=== PATIENT | female | born 1970 | race Two or more races ===

== ENCOUNTER 2018-12-15 16:16 | Emergency (ER) | payer MEDICAID ==
[~2018-12-15] VITALS: Ht 154.9 cm; Wt 56.7 kg
[~2018-12-15 16:16] MED LIST: ALEN1TAB32 PO; AMLO10TA13 PO; ARTISOL13 EACHEYE; FAM20T PO; HYDR-4188 PO; LISI40TA PO; MECL25CH38 PO; MYCO500T PO; ONDA-144 PO; PRE5T PO; PROP20TA73 PO
[2018-12-15 23:18] VITALS: BP 126/76
== END 2018-12-16 00:59 | disposition left against medical advice (07) ==
LOC: ER 16:16
DX: R51 Headache (principal); Z53.21 Procedure and treatment not carried out due to patient leaving prior to being seen by health care provider

== ENCOUNTER 2019-12-05 05:11 | Emergency (ER) | payer MEDICAID ==
[~2019-12-05] VITALS: Ht 167.6 cm; Wt 68.0 kg
[~2019-12-05 05:11] MED LIST changes: -FAM20T PO; +FAMO20TA10 PO; -LISI40TA PO; +LISI40TA11 PO
[2019-12-05 06:03] LABS: Basophils # (auto) 0 10 ^3/uL (0-0.2); Basophils % (auto) 0.4 % (0.0-2.0); Eosinophils # (auto) 0 10 ^3/uL (0-0.8); Eosinophils % (auto) 0.4 % (0.0-7.0); Hematocrit 42.5 % (36.0-46.0); Hemoglobin 14.1 g/dL (12.2-16.2); Lymphocytes # (auto) 0.2 10 ^3/uL (0.4-5.4); Lymphocytes % (auto) 7.3 % (10.0-50.0); Mean Corpuscular Hemoglobin 31.2 pg (28.0-32.0); Mean Corpuscular Hgb Conc. 33.2 g/dL (32.0-36.0); Mean Corpuscular Volume 93.8 fL (80.0-100.0); Monocytes # (auto) 0.4 10 ^3/uL (0-1.3); Monocytes % (auto) 15.2 % (0.0-12.0); Neutrophils # (auto) 1.9 10 ^3/uL (1.6-8.6); Neutrophils % (auto) 76.7 % (37.0-80.0); Nucleated Red Blood Cells % 0.3 %; Platelet Count (auto) 186 10^3/uL (140-450); Red Blood Cells 4.53 10^6/uL (4.0-5.20); Red Cell Distribution Width 15.1 % (11.8-14.3); White Blood Cell 2.5 10^3/uL (4.4-10.8)
[2019-12-05 06:22] LABS: Acetaminophen < 2.0 ug/mL (10-30); Salicylate < 1.7 mg/dL (2.8-20.0)
[2019-12-05 06:24] LABS: Albumin 3.8 g/dL (3.4-5.0); Anion Gap 7 (5-15); Blood Urea Nitrogen 14 mg/dL (7-18); Calcium 8.5 mg/dL (8.5-10.1); Carbon Dioxide 24 mmol/L (21-32); Chloride 107 mmol/L (98-107); Potassium 3.7 mmol/L (3.5-5.1); Sodium 138 mmol/L (136-145)
[2019-12-05 06:30] LABS: Alanine Aminotransferase 17 U/L (13-56); Alkaline Phosphatase 69 U/L (45-117); Aspartate Aminotransferase 17 U/L (15-37); BUN/Creatinine Ratio 17.3; Bilirubin, Total 0.8 mg/dL (0.2-1.0); Blood Alcohol < 3.0 mg/dL (0-5); GFR African American 97 mL/min; GFR Non-African American 80 mL/min; Glucose 81 mg/dL (74-106); Magnesium 2.2 mg/dL (1.6-2.6); Total Protein 6.9 g/dL (6.4-8.2)
[2019-12-05] MEDS ORDERED: SODIUM CHLORIDE 0.9% 1,000 ML IV ONE ×2 (07:51→08:55)
[2019-12-05] MEDS ORDERED: SODIUM CHLORIDE 0.9% 500 ML IVB ONE (07:51)
[2019-12-05] MEDS ORDERED: PROMETHAZINE HCL 25 MG/ML 1ML IV PRN (08:00)
[2019-12-05 11:38] LABS: Amphetamine Screen, Urine NEGATIVE (NEGATIVE); Barbiturate Scree,Urine NEGATIVE (NEGATIVE); Benzodiazephine Screen, Urine NEGATIVE (NEGATIVE); Cannabinoid Screen, Urine NEGATIVE (NEGATIVE); Cocaine Screen, Urine NEGATIVE (NEGATIVE); Opiate Scree,Urine NEGATIVE (NEGATIVE); Phencyclidine Screen, Urine NEGATIVE (NEGATIVE)
[2019-12-05 11:40] LABS: Alcohol, Urine < 3.0 mg/dL (0-10)
[2019-12-05 11:47] LABS: Urine Bacteria NONE SEEN /hpf (None Seen); Urine Blood Negative /uL (Negative); Urine Mucus FEW (None Seen); Urine Specific Gravity 1.029 (1.001-1.035); Urine WBC 9 /hpf (0 - 5)
[2019-12-05] MEDS ORDERED: cefTRIAXone 1GM/50ML D5W 50 ML IV ONE (12:15)
[2019-12-05 12:35] VITALS: BP 112/56
== END 2019-12-05 12:57 | disposition home or self-care (01) ==
LOC: EDBD 05:11 → ER 05:11
DX: N39.0 Urinary tract infection, site not specified (principal); R53.1 Weakness; R11.2 Nausea with vomiting, unspecified; Z20.828 Contact with and (suspected) exposure to other viral communicable diseases; M19.90 Unspecified osteoarthritis, unspecified site; K21.9 Gastro-esophageal reflux disease without esophagitis; I10 Essential (primary) hypertension
CPT/HCPCS: 36415; 71045; 74176; 80053; 80307; 80320; 80329; 81001; 83690; 83735; 84443; 85025; 87426; 93005; 96365; 96375; 99285; J0696; J2550